=== PATIENT | female | born 1995 | race African-American/Black ===

== ENCOUNTER 2018-04-13 03:09 | Emergency (ER) | payer MEDICAID ==
[~2018-04-13] VITALS: Ht 170.2 cm; Wt 64.0 kg
[2018-04-13] MEDS ORDERED: SODIUM CHLORIDE 0.9% 1,000 ML IV ONE (03:33)
[2018-04-13 04:14] LABS: CHLORIDE 104 mEq/L (98-107)
[2018-04-13 04:17] LABS: HCG SCREEN POSITIVE
[2018-04-13 04:18] LABS: BASOPHILS % 0.3 % (0.0-2.0); EOSINOPHILS % 0.7 % (0.0-5.0); HEMATOCRIT. 37.7 % (36.0-48.0); HEMOGLOBIN. 12.8 g/dL (12.0-16.0); LYMPHOCYTES % 23.9 % (20.0-50.0); MEAN CORPUSCULAR HEMOGLOBIN 32.2 pg (28.0-32.0); MEAN CORPUSCULAR VOLUME 94.9 fL (81.0-99.0); MEAN PLATELET VOLUME 7.6 fl (7.4-10.4); MONOCYTES % 9.7 % (2.0-8.0); NEUTROPHILS % 65.4 % (40.0-76.0); PLATELET 281 x1000/uL (130-400); RED BLOOD CELL COUNT 3.97 mill/uL (4.2-5.4); RED CELL DISTRIBUTION WIDTH 13.7 % (11.6-14.6)
[2018-04-13 04:36] LABS: B-HCG QUANTITATIVE 17902 mIU/mL (<3)
[2018-04-13 05:22] LABS: CLARITY URINE CLOUDY (CLEAR); COLOR URINE YELLOW (YELLOW); KETONES URINE TRACE (NEGATIVE); LEUKOCYTE ESTERASE URINE TRACE (NEGATIVE); NITRITE URINE NEGATIVE (NEGATIVE); OCCULT BLOOD URINE 3+ (NEGATIVE); PROTEIN URINE TRACE (NEGATIVE); SPECIFIC GRAVITY URINE 1.026 (1.005-1.030)
[2018-04-13] MEDS ORDERED: CEFAZOLIN 1000MG PREMIX 50 ML IV ONE (05:45)
[2018-04-13] MEDS ORDERED: POTASSIUM CHLORIDE 20MEQ TABLET SR PO ONE (06:00)
[2018-04-13 06:24] LABS: *AMPHETAMINES SCREEN URINE NEGATIVE (NEGATIVE); *BARBITURATES SCREEN URINE NEGATIVE (NEGATIVE); *BENZODIAZEPINES SCREEN URINE NEGATIVE (NEGATIVE); *COCAINE SCREEN URINE NEGATIVE (NEGATIVE)
[2018-04-13 06:25] LABS: METHADONE URINE SCREEN NEGATIVE (NEGATIVE); OPIATES URINE SCREEN NEGATIVE (NEGATIVE); PHENCYCLIDINE URINE SCREEN NEGATIVE (NEGATIVE)
[2018-04-13 06:30] LABS: CANNABINOID URINE SCREEN PRESUMTIVE POSITIVE (NEGATIVE)
[2018-04-13 08:30] VITALS: BP 102/49
== END 2018-04-13 08:30 | disposition home or self-care (01) ==
LOC: ER 03:09
DX: R10.2 Pelvic and perineal pain (principal); N93.9 Abnormal uterine and vaginal bleeding, unspecified; R39.15 Urgency of urination
CPT/HCPCS: 36415; 76801; 80048; 80305; 81003; 84702; 84703; 85025; 86850; 86900; 86901; 96365; 99285; J0690; J7030; Z7610

== ENCOUNTER 2018-05-28 15:02 | Emergency (ER) | payer MEDICAID ==
[~2018-05-28] VITALS: Ht 162.6 cm; Wt 73.0 kg
[2018-05-28 15:09] VITALS: BP 148/80
== END 2018-05-28 17:30 | disposition left against medical advice (07) ==
LOC: ER 15:02
DX: R10.9 Unspecified abdominal pain (principal); Z53.21 Procedure and treatment not carried out due to patient leaving prior to being seen by health care provider

== ENCOUNTER 2022-04-17 20:06 | Emergency (ER) | payer MEDICAID ==
[~2022-04-17] VITALS: Ht 160 cm; Wt 54.0 kg
[2022-04-17 20:40] VITALS: BP 144/102
[2022-04-17] MEDS ORDERED: ACETAMINOPHEN 325MG TABLET PO ONE (22:00)
[2022-04-17] MEDS ORDERED: NAPR-681 MT (23:38)
[2022-04-17] MEDS ORDERED: AMOX1TAB16 MT (23:38)
== END 2022-04-17 22:23 | disposition home or self-care (01) ==
LOC: ER 20:06
DX: S60.572A Other superficial bite of hand of left hand, initial encounter (principal); M79.641 Pain in right hand; M25.511 Pain in right shoulder; Y04.1XXA Assault by human bite, initial encounter; Y93.89 Activity, other specified; Y92.9 Unspecified place or not applicable
CPT/HCPCS: 73000; 73030; 73130; 99284